=== PATIENT | female | born 1960 | race Caucasian/White ===

== ENCOUNTER 2017-07-18 20:23 | Emergency (ER) | payer SELFPAY ==
[~2017-07-18] VITALS: Ht 167.6 cm; Wt 63.5 kg
[2017-07-18 20:24] VITALS: BP 158/94; PULSE 71; RESP 16; TEMP 98.6; O2SAT 100
[2017-07-19] MEDS ORDERED: LEVO88TA2 PO (10:06)
[2017-07-19] MEDS ORDERED: METR-1 PO (10:06)
[2017-07-19] MEDS ORDERED: CIPR-9 PO (10:06)
[2017-07-19] MEDS ORDERED: HYOS0.128 PO (10:06)
[2017-07-19] MEDS ORDERED: VITA10002 PO (10:07)
[2017-07-19] MEDS ORDERED: MEDR4PAK PO (11:17)
[2017-07-19] MEDS ORDERED: PERC10TA27 PO (11:17)
== END 2017-07-18 23:52 | disposition left against medical advice (07) ==
LOC: NED 20:23
DX: R68.89 Other general symptoms and signs (principal)
CPT/HCPCS: 99281

== ENCOUNTER 2017-07-19 09:00 | Emergency (ER) | payer BC ==
[~2017-07-19] VITALS: Ht 167.6 cm; Wt 66.6 kg
[2017-07-19 09:06] VITALS: BP 135/85; PULSE 78; RESP 16; TEMP 97.8; O2SAT 100
--- NOTE | 2017-07-19 09:15 | PD ---
HPI Chief Complaint: GI Complaint Time Seen by Provider: 09:13 Travel History International Travel<30 days: No Contact w/Intl Traveler<30days: No Traveled to known affect area: No History of Present Illness HPI FROM OUT OF TOWN WITHOUT LOCAL PCP.....C/O ABD PAIN , GENERALIZED, CRAMPY, NONRAD, 05/20, ONGOING FOR SEVERAL DAYS, WAS SEEN IN [place] WHERE SHE WAS [place] WITH COLITIS (VIA CT) AND TREATED WITH LEVSIN, CIPRO AND FLAGYL. PATIENT RETURNS WITH ONGOING PAIN. PMHX: H/O ANEMIA, HYPOTHYROID, ENDOMETRIOSIS AND 2 MISCARRIAGES (HAD LAPAROSCOPY) PFSH Past Medical History Anemia: Yes Diminished Hearing: No Gastrointestinal Disorders: Yes (COLITIS) Thyroid Disease: Yes (HYPOTHYROID) Dilation and Curettage (D&C): Yes (X2) Past Surgical History Abdominal Surgery: Yes (LAPROSCOPY X3) Social History Alcohol Use: No Tobacco Use: No Substance Use: No Allergies-Medications (Allergen,Severity, Reaction): Coded Allergies: Sulfa (Sulfonamide Antibiotics) (Verified Allergy, Intermediate, Rash, 07/18/17) RASH AND VOMITING Reported Meds & Prescriptions Reported Meds & Active Scripts Active Reported Vitamin B-12 (Cyanocobalamin) 1,000 Mcg Tab 1,000 Mcg PO DAILY Flagyl (Metronidazole) 500 Mg Tab 500 Mg PO Q8HR Cipro (Ciprofloxacin HCl) 500 Mg Tab 500 Mg PO BID Hyoscyamine (Hyoscyamine Sulfate) 0.125 Mg Tab 0.125 Mg PO Q4H Levothyroxine (Levothyroxine Sodium) 88 Mcg Tab 88 Mcg PO DAILY Review of Systems Except as stated in HPI: all other systems reviewed are Neg Gastrointestinal: Positive: Nausea, Diarrhea, Abdominal Pain Physical Exam Narrative GENERAL: SKIN: Warm and dry. HEAD: Atraumatic. Normocephalic. EYES: Pupils equal and round. No scleral icterus. No injection or drainage. ENT: No nasal bleeding or discharge. Mucous membranes pink and moist. NECK: Trachea midline. No JVD. CARDIOVASCULAR: Regular rate and rhythm. RESPIRATORY: No accessory muscle use. Clear to auscultation. Breath sounds equal bilaterally. GASTROINTESTINAL: Abdomen soft, DIFFUSELY TTPERCUSSION, nondistended. MUSCULOSKELETAL: Extremities without clubbing, cyanosis, or edema. No obvious deformities. NEUROLOGICAL: Awake and alert. No obvious cranial nerve deficits. Motor grossly within normal limits. Five out of 5 muscle strength in the arms and legs. Normal speech. PSYCHIATRIC: Appropriate mood and affect; insight and judgment normal. Data Data Last Documented VS Vital Signs Date Time Temp Pulse Resp B/P (MAP) Pulse Ox O2 Delivery O2 Flow Rate FiO2 07/19/17 11:05 59 16 108/72 (84) 98 Room Air 07/19/17 09:06 97.8 Orders Orders Complete Blood Count With Diff (07/19/17) Comprehensive Metabolic Panel (07/19/17) Lipase (07/19/17) Lactic Acid (07/19/17) Prothrombin Time / Inr (Pt) (07/19/17) Act Partial Throm Time (Ptt) (07/19/17) Urinalysis - C+S If Indicated (07/19/17) Iv Access Insert/Monitor (07/19/17) Ecg Monitoring (07/19/17) Oximetry (07/19/17) NPO (07/19/17) Morphine Inj (Morphine Inj) (07/19/17:30) Ondansetron Inj (Zofran Inj) (07/19/17:) Metronidazole 500 Mg Inj (Flagyl 500 Mg (07/19/17:30) Sodium Chlor 0.9% 1000 Ml Inj (Ns 1000 M (07/19/17:) Electrocardiogram (07/19/17:) Methylprednisolone So Succ Inj (Solumedr (07/19/17:30) Labs Laboratory Tests Test 07/19/17 09:20 07/19/17: Urine Color YELLOW Urine Turbidity SLIGHT Urine pH 8.5 Urine Specific [place] 1.019 Urine Protein NEG mg/dL Urine Glucose (UA) NEG mg/dL Urine Ketones NEG mg/dL Urine Occult Blood NEG Urine Nitrite NEG Urine Bilirubin NEG Urine Leukocyte Esterase NEG Urine Squamous Epithelial Cells 0-5 /hpf Urine Amorphous Sediment MOD Microscopic Urinalysis Comment CULT NOT INDICATED White Blood Count 12.3 TH/MM3 Red Blood Count 4.43 MIL/MM3 Hemoglobin 13.2 GM/DL Hematocrit 39.8 % Mean Corpuscular Volume 89.8 FL Mean Corpuscular Hemoglobin 29.7 PG Mean Corpuscular Hemoglobin Concent 33.1 % Red Cell Distribution Width 12.8 % Platelet Count 374 TH/MM3 Mean Platelet Volume 7.9 FL Neutrophils (%) (Auto) 83.5 % Lymphocytes (%) (Auto) 10.6 % Monocytes (%) (Auto) 5.0 % Eosinophils (%) (Auto) 0.5 % Basophils (%) (Auto) 0.4 % Neutrophils # (Auto) 10.3 TH/MM3 Lymphocytes # (Auto) 1.3 TH/MM3 Monocytes # (Auto) 0.6 TH/MM3 Eosinophils # (Auto) 0.1 TH/MM3 Basophils # (Auto) 0.0 TH/MM3 CBC Comment DIFF FINAL Differential Comment Prothrombin Time 11.4 SEC Prothromb Time International Ratio 1.0 RATIO Activated Partial Thromboplast Time 27.4 SEC Blood Urea Nitrogen 9 MG/DL Creatinine 0.90 MG/DL Random Glucose 113 MG/DL Total Protein 7.7 GM/DL Albumin 3.9 GM/DL Calcium Level 9.0 MG/DL Alkaline Phosphatase 82 U/L Aspartate Amino Transf (AST/SGOT) 27 U/L Alanine Aminotransferase (ALT/SGPT) 30 U/L Total Bilirubin 0.5 MG/DL Sodium Level 139 MEQ/L Potassium Level 3.2 MEQ/L Chloride Level 103 MEQ/L Carbon Dioxide Level 27.2 MEQ/L Anion Gap 9 MEQ/L Estimat Glomerular Filtration Rate 64 ML/MIN Lactic Acid Level 1.5 mmol/L Lipase 125 U/L MDM Medical Decision Making Medical Screen Exam Complete: Yes Emergency Medical Condition: Yes Medical Record Reviewed: Yes Interpretation(s) NSR 62, NL INTERVALS, NO STEMI PATTERN NOTED Differential Diagnosis COLITIS V DIVERTIC V APPY V ANEMIA V PANCREATITIS V ELECTROLYTE ABNL Narrative Course REVIEWED CHART FROM [facility] (JULY 15 10PM AND DC BY JUL 16) IN WHICH CT ABD SHOWED VERY FAINT/MILD COLITIS OF SIGMOID, NO LEUKOCYTOSIS THEN OR NOW, NO ELEVATED LIPASE THEN OR NOW, NL LFT'S THEN OR NOW, ELECTROLYTES WERE WNL THEN AND NOW...PATIENT IS NOW PAIN FREE AND TOLERATING PO FLUIDS IN DEPARTMENT WILL BE D/C AND WILL ADD STEROID SHORT COURSE AND ADDITIONAL PAIN MEDICATION TO ASSIST IN HER COMFORT Diagnosis Primary Impression: RESOLVING ENTERITIS Additional Instructions: FINISH TAKING YOUR CIPRO, FLAGYL....AND WHILE TAKING PERCOCET AVOID TAKING LEVSIN AT SAME TIME. Scripts Methylprednisolone Dosepak (Medrol Dosepak) 4 Mg Dspk 4 MG PO DIRECTED, #1 DSPK 0 Refills Per Pharmacist direction Prov: Ra Brink MD 07/19/17 Oxycodone-Acetaminophen (Percocet) 10-325 mg Tab 1 TAB PO Q6H Y for PAIN, #20 TAB 0 Refills Prov: Ra Brink MD 07/19/17 Disposition: 01 DISCHARGE HOME Condition: Stable Ra Brink MD Jul 19, 2017 09:15
[2017-07-19] MEDS ORDERED: SODIUM CHLOR 0.9% 1000 ML INJ 1,000 ML IV SCH (09:25)
[2017-07-19] MEDS ORDERED: ONDANSETRON HCL 4 MG/2 ML VIAL IVP ONE (09:30)
[2017-07-19] MEDS ORDERED: metroNIDAZOLE 500 MG INJ 100 ML IV ONE (09:30)
[2017-07-19] MEDS ORDERED: methylPREDNISolone SOD SUCC 125 MG/2 ML VIAL IV PUSH ONE (09:30)
[2017-07-19] MEDS ORDERED: MORPHINE SULFATE 4 MG/ML INJ IV PUSH ONE (09:30)
[2017-07-19 09:50] LABS: BLOOD, URINE NEG (NEG); GLUCOSE,URINE NEG (NEG); KETONE, URINE NEG (NEG); NITRITE,URINE NEG (NEG); PH, URINE 8.5 (5.0-8.5)
[2017-07-19 09:57] LABS: URINE COLOR YELLOW (YELLW/STRAW)
[2017-07-19 09:58] LABS: SQUAMOUS EPITHELIAL CELL URINE 0-5 /hpf (0-5)
[2017-07-19 09:59] LABS: COMMENT (UR) CULT NOT INDICATED; CULTURE IF INDICATED CULT NOT INDICATED
[2017-07-19 10:00] LABS: AUTOMATED NEUTROPHIL # 10.3 TH/MM3 (1.8-7.7); BASOPHIL % 0.4 % (0.0-2.0); EOSINOPHIL # 0.1 TH/MM3 (0-0.4); EOSINOPHIL % 0.5 % (0.0-4.0); HEMATOCRIT 39.8 % (35.0-46.0); HEMO FLAGS DIFF FINAL; LYMPH % 10.6 % (9.0-44.0); LYMPHOCYTE # 1.3 TH/MM3 (1.0-4.8); MEAN CELL VOLUME 89.8 FL (80.0-100.0); MEAN CORPUSCULAR HEMOGLOBIN 29.7 PG (27.0-34.0); MEAN CORPUSCULAR HGB CONC 33.1 % (32.0-36.0); NEUT % 83.5 % (16.0-70.0); PLATELET COUNT 374 TH/MM3 (150-450); RED BLOOD COUNT 4.43 MIL/MM3 (4.00-5.30); RED CELL DISTRIBUTION WIDTH 12.8 % (11.6-17.2); WHITE BLOOD COUNT 12.3 TH/MM3 (4.0-11.0)
[2017-07-19 10:02] LABS: ANION GAP 9 MEQ/L (5-15); APTT (PATIENT) 27.4 SEC (24.3-30.1); BICARBONATE 27.2 MEQ/L (21.0-32.0); BLOOD UREA NITROGEN 9 MG/DL (7-18); CHLORIDE 103 MEQ/L (98-107); POTASSIUM 3.2 MEQ/L (3.5-5.1); PROTHROMBIN TIME - PATIENT 11.4 SEC (9.8-11.6); SODIUM (NA) 139 MEQ/L (136-145)
[2017-07-19 10:05] LABS: ALT (GPT) 30 U/L (10-53); GLOMERULAR FILTRATION RATE 64 ML/MIN (>89)
[2017-07-19] MEDS ORDERED: LEVO88TA2 PO (10:06)
[2017-07-19] MEDS ORDERED: METR-1 PO (10:06)
[2017-07-19] MEDS ORDERED: CIPR-9 PO (10:06)
[2017-07-19] MEDS ORDERED: HYOS0.128 PO (10:06)
[2017-07-19 10:07] LABS: AST (GOT) 27 U/L (15-37)
[2017-07-19] MEDS ORDERED: VITA10002 PO (10:07)
[2017-07-19 10:08] LABS: ALKALINE PHOSPHATASE 82 U/L (45-117)
[2017-07-19 10:13] VITALS: O2SAT 100
[2017-07-19 10:13] LABS: TOTAL BILIRUBIN ADULT 0.5 MG/DL (0.2-1.0)
[2017-07-19 11:05] VITALS: BP 108/72; PULSE 59; RESP 16; O2SAT 98
[2017-07-19] MEDS ORDERED: PERC10TA27 PO (11:17)
[2017-07-19] MEDS ORDERED: MEDR4PAK PO (11:17)
[2017-07-19 11:51] VITALS: BP 110/70
--- NOTE | 2017-07-19 12:31 | EKG ---
Date Performed: 07/19/2017 Time Performed: 09:54:25 PTAGE: 56 years EKG: Sinus rhythm POSSIBLE RIGHT VENTRICULAR CONDUCTION DELAY BORDERLINE ECG NO PREVIOUS TRACING DOCTOR: Zain Cline Interpretating Date/Time 07/19/2017 12:27:47
== END 2017-07-19 11:53 | disposition home or self-care (01) ==
LOC: PHED 09:00
DX: K52.9 Noninfective gastroenteritis and colitis, unspecified (principal); D64.9 Anemia, unspecified; E03.9 Hypothyroidism, unspecified
CPT/HCPCS: 80053; 81001; 83605; 83690; 85025; 85610; 85730; 93005; 96361; 96365; 96375; 99284; J2270; J2405; J2930; J7030